=== PATIENT | male | born 1950 | race Caucasian/White ===

== ENCOUNTER 2018-12-29 14:54 | Day surgery (SDC) | payer OTHER, MEDICARE ==
[2018-12-29] MEDS ORDERED: DIPHENHYDRAMINE HCL 50 MG/ML VIAL ONE (15:31)
[2018-12-29] MEDS ORDERED: ONDANSETRON HCL INJ/PF 4 MG/2 ML SDV ONE (15:31)
[2018-12-29] MEDS ORDERED: FENTANYL CITRATE INJ/PF 100 MCG/2 ML AMPUL ONE (15:32)
[2018-12-29] MEDS ORDERED: MIDAZOLAM 2 MG/2 ML INJ ONE (15:32)
[2018-12-29] MEDS ORDERED: GLUCAGON,HUMAN RECOMB 1 MG INJ ONE (15:33)
[2018-12-29] MEDS ORDERED: EPINEPHRINE INJ 1 MG/10 ML DISP.SYRIN ONE (15:33)
[2018-12-29] MEDS ORDERED: FLUMAZENIL INJ 0.5 MG/5 ML VIAL ONE (15:33)
[2018-12-29] MEDS ORDERED: NALOXONE HCL INJ/PF 0.4 MG/1 ML SDV ONE (15:33)
--- NOTE | 2018-12-29 16:32 | Operative Report ---
Operative Report DATE OF SURGERY: 12/29/18 Operative Report: Pre-op diagnosis: History of anemia and angiodysplasia in the colon Post-op diagnosis: 1. Multiple colonic angiodysplasia 2. Internal hemorrhoids 3. Sigmoid colon polyp Surgery: Colonoscopy with argon plasma coagulation Medications: Versed 2mg, Fentanyl 100mcg IV push Tissue removed: None Procedure: After informed consent obtained from patient, conscious sedation was achieved. A digital rectal examination was performed and this was unremarkable. The colonoscope was inserted into the rectum and advanced to the cecum. The appendiceal orifice and the terminal ileum were both identified. The mucosa was examined into details as the colonoscope was slowly pulled out of the patient. The endoscope was retroflexed in the rectum. Patient tolerated the procedure well. Findings Terminal ileum: Normal Cecum: Normal Ascending colon: Normal 6-8 angiodysplasias ranging in size from 3mm to 6 mm was ablated in the transverse, descending and the sigmoid colon. Sigmoid colon: A 3 mm polyp was ablated. Rectum: 6 mm angiodysplasia was ablated in the distal rectal. Moderate size internal hemorrhoids were also noted Plan: Follow-up CBC OPERATION: .
[2018-12-29 17:14] VITALS: BP 152/57
== END 2018-12-29 17:05 | disposition home or self-care (01) ==
LOC: END 14:54
PROVIDERS: ATTEND Internal Medicine Gastroenterology
DX: D12.5 Benign neoplasm of sigmoid colon (principal); K55.20 Angiodysplasia of colon without hemorrhage; K64.8 Other hemorrhoids; D50.0 Iron deficiency anemia secondary to blood loss (chronic); I10 Essential (primary) hypertension; E11.9 Type 2 diabetes mellitus without complications; Z79.84 Long term (current) use of oral hypoglycemic drugs; Z79.899 Other long term (current) drug therapy
CPT/HCPCS: 45388; 82962; J2250; J3010; J0171; J1200; J1610; J2310; J2405; J3490

== ENCOUNTER 2019-10-19 15:35 | Day surgery (SDC) | payer OTHER, MEDICARE ==
[2019-10-19] MEDS ORDERED: DIPHENHYDRAMINE HCL 50 MG/ML VIAL ONE (15:40)
[2019-10-19] MEDS ORDERED: ONDANSETRON HCL INJ/PF 4 MG/2 ML SDV ONE (15:40)
[2019-10-19] MEDS ORDERED: EPINEPHRINE INJ 1 MG/10 ML DISP.SYRIN ONE (15:41)
[2019-10-19] MEDS ORDERED: GLUCAGON,HUMAN RECOMB 1 MG INJ ONE (15:41)
[2019-10-19] MEDS ORDERED: NALOXONE HCL INJ/PF 0.4 MG/1 ML SDV ONE (15:41)
[2019-10-19] MEDS ORDERED: FLUMAZENIL INJ 0.5 MG/5 ML VIAL ONE (15:41)
[2019-10-19] MEDS: MIDAZOLAM 2 MG/2 ML INJ ONE ×2 (18:10→18:25)
[2019-10-19] MEDS: FENTANYL CITRATE INJ/PF 100 MCG/2 ML AMPUL ONE ×2 (18:13→18:16)
--- NOTE | 2019-10-19 18:38 | Operative Report ---
Operative Report DATE OF SURGERY: 10/19/19 Operative Report: Pre-op diagnosis: History of iron deficiency anemia, cirrhosis and esophageal varices Post-op diagnosis: 1. Esophageal varices 2. Portal gastropathy Surgery: Esophagogastroduodenoscopy with variceal rubber banding Medications: Versed 3mg Fentanyl 100mcg IV push Tissue removed: None Procedure: After informed consent obtained from patient, the throat was sprayed with Hurricane and conscious sedation was achieved. The upper endoscope was inserted into the esophagus under direct vision and advanced into the stomach. The duodenum was entered and examined to the second part. Endoscope was then slowly pulled out of the patient as the mucosa was examined into details. Patient tolerated procedure well. Findings Esophagus: Moderate sized varices were noted in the distal esophagus with no evidence for recent bleeding. 6 rubber bands were placed over 3 columns of varices Antrum: Consistent with portal gastropathy Body: Normal Fundus: Normal Duodenum first part: Normal Duodenum second part: Normal Plan: Continue with nadolol and repeat EGD in 4 to 6 weeks OPERATION: .
[2019-10-19] MEDS ORDERED: LIDOCAINE 2% VISCOUS SOLN 20 ML UDCUP ONE (18:48)
[2019-10-19] MEDS ORDERED: SUCRALFATE 1 GM TABLET PO ONE (19:15)
[2019-10-19] MEDS ORDERED: LIDOCAINE 2% VISCOUS SOLN 20 ML UDCUP PO ONE (19:15)
[2019-10-19 19:37] VITALS: BP 127/67
== END 2019-10-19 19:48 | disposition home or self-care (01) ==
LOC: END 15:35
PROVIDERS: ATTEND Internal Medicine Gastroenterology
DX: I85.00 Esophageal varices without bleeding (principal); K76.6 Portal hypertension; K31.89 Other diseases of stomach and duodenum; K74.60 Unspecified cirrhosis of liver; D50.0 Iron deficiency anemia secondary to blood loss (chronic); K74.69 Other cirrhosis of liver; D69.6 Thrombocytopenia, unspecified; Z79.84 Long term (current) use of oral hypoglycemic drugs; Z79.899 Other long term (current) drug therapy; I10 Essential (primary) hypertension; E11.9 Type 2 diabetes mellitus without complications
CPT/HCPCS: 43244; 82962; J2250; J3010; J3490; J0171; J1200; J1610; J2310; J2405

== ENCOUNTER 2020-05-19 12:01 | Day surgery (SDC) | payer MEDICARE, OTHER ==
[2020-05-16 12:40] LABS: ABSOLUTE EOSINOPHILS # (AUTO) 0.1 10^3/uL (0.0-0.6); ABSOLUTE LYMPHOCYTES (AUTO) 0.5 10^3/uL (0.5-4.7); ABSOLUTE MONOCYTES (AUTO) 0.2 10^3/uL (0.1-1.4); BASOPHILS % (AUTO) 0.6 % (0-2); EOSINOPHILS % (AUTO) 4.5 % (0-6); HEMATOCRIT 34.7 % (37.9-51.0); HEMOGLOBIN 11.7 g/dL (13.5-17.0); LYMPHOCYTES % (AUTO) 17.5 % (13-45); MEAN CORPUSCULAR HGB CONC 33.6 g/dL (32.0-36.0); MEAN CORPUSCULAR VOLUME 86 fl (80-97); MONOCYTES % (AUTO) 8.5 % (3-13); RED BLOOD COUNT 4.01 10^6/uL (4.35-5.55); RED CELL DISTRIBUTION WIDTH 19.7 % (11.5-14.0); SEGMENTED NEUTROPHILS % (AUTO) 68.9 % (42-78); TOTAL CELLS COUNTED % (AUTO) 100 %; WHITE BLOOD COUNT 2.8 10^3/uL (4.0-10.5)
--- NOTE | 2020-05-16 12:53 | EKG REPORT ---
SEVERITY:- ABNORMAL ECG - SINUS BRADYCARDIA PROBABLE ANTEROLATERAL INFARCT, OLD : Confirmed by: Jovi Bravo MD 16-May-2020 12:51:57
[2020-05-16 12:55] LABS: ANION GAP 6 (5-19); BLOOD UREA NITROGEN 15 mg/dL (7-20); CALCIUM 8.8 mg/dL (8.4-10.2); CARBON DIOXIDE 27 mmol/L (22-30); CHLORIDE 102 mmol/L (98-107); GLUCOSE 275 mg/dL (75-110); POTASSIUM 3.8 mmol/L (3.6-5.0)
[2020-05-16 13:26] LABS: PLATELET COUNT 62 10^3/uL (150-450)
[~2020-05-19 12:01] MED LIST: PROPOFOL INJ 200 MG/20 ML VIAL IV ONE
[2020-05-19 12:59] LABS: POTASSIUM 3.7 mmol/L (3.6-5.0)
[2020-05-19] MEDS ORDERED: FENTANYL CITRATE INJ/PF 100 MCG/2 ML AMPUL IV PRN ×3 (14:35)
--- NOTE | 2020-05-19 14:44 | Operative Report ---
Operative Report DATE OF SURGERY: 05/19/20 Operative Report: Pre-op diagnosis: History of cirrhosis with esophageal varices Post-op diagnosis: 1. Mild antral gastritis with portal gastropathy 2. Very small esophageal varices Surgery: Esophagogastroduodenoscopy with biopsy Medications: As per anesthesia Tissue removed: Antral biopsy for pathology Procedure: After informed consent obtained from patient, the throat was sprayed with Hurricane and conscious sedation was achieved. The upper endoscope was inserted into the esophagus under direct vision and advanced into the stomach. The duodenum was entered and examined to the second part. Endoscope was then slowly pulled out of the patient as the mucosa was examined into details. Patient tolerated procedure well. Findings Esophagus: There were 2 columns of very small varices noted in the distal esophagus with areas of scarring from previous rubber banding Antrum: Mild erythema with features of portal gastropathy Body: Normal Fundus: Normal Duodenum first part: Normal Duodenum second part: Normal Plan: Await pathology. Continue nadolol and pantoprazole but reduce dose to 20 mg daily. Repeat EGD in 1 year OPERATION: .
[2020-05-19 16:06] VITALS: BP 147/74
== END 2020-05-19 15:55 | disposition home or self-care (01) ==
LOC: OROUT 12:01
PROVIDERS: ATTEND Internal Medicine Gastroenterology
DX: I85.00 Esophageal varices without bleeding (principal); K29.50 Unspecified chronic gastritis without bleeding; I20.9 Angina pectoris, unspecified; I10 Essential (primary) hypertension; E11.9 Type 2 diabetes mellitus without complications; D64.9 Anemia, unspecified; K74.60 Unspecified cirrhosis of liver; G47.33 Obstructive sleep apnea (adult) (pediatric); Z79.899 Other long term (current) drug therapy
CPT/HCPCS: 43239; 93005; 36415 ×2; 82947; 84132; 85025; 80048; 88342 ×2; 88305 ×2; 93010; 00731; U0003; J2704; C9803; 731; 87635